=== PATIENT | female | born 1995 | race African-American/Black ===

== ENCOUNTER 2019-03-16 18:18 | Emergency (ER) | payer BC ==
--- NOTE | 2019-03-16 18:42 | ER Document Report ---
ED Medical Screen (RME) - General Chief Complaint: Flu Symptoms Stated Complaint: FEVER Time Seen by Provider: 03/16/19 18:26 TRAVEL OUTSIDE OF THE [place] IN LAST 30 DAYS: No - HPI Notes: 03/16/19 18:40 Patient is a 24-year-old female with no significant past medical history who presents complaining of being "sick" for the past week. Patient states that it started with fever/body ache and sore throat which progressed to nausea and vomiting. Patient states that she was evaluated twice in urgent care this past week with a last day being Monday with 2 strep tests that were negative. Patient states that she was placed on erythromycin antibiotic since Monday and she has not noticed any improvement. Patient states that she has a decreased appetite. She is still urinating. Patient states that she has noticed a small painful bump in her groin and noticed some vaginal discharge this week as well. She does continue to have a sore throat with exudates. She also has nasal congestion and discharge and an occasional dry cough. Denies FAITH, neck pain, CP, SOB, Abd pain, dysuria, back pain, or rash. I have treated and performed a rapid initial assessment of this patient. A comprehensive ED assessment and evaluation of the patient, analysis of test results and completion of medical decision making process will be conducted by additional ED providers. PHYSICAL EXAMINATION: GENERAL: Well-appearing, well-nourished and in no acute distress. A&Ox4. Answers questions appropriately. Moves comfortably w/o notable distress HEAD: Atraumatic, normocephalic. EYES: Pupils equal round and reactive to light, extraocular movements intact, sclera anicteric, conjunctiva are normal. ENT: Nares patent and with clear discharge. oropharynx mild erythema without exudates. 2+ tonsilar hypertrophy with erythema and b/l exudates. No palatine shift. Uvula midline. No tongue protrusion. No drooling, hoarseness, or airway compromise. Moist mucous membranes. No sinus tenderness. NECK: Normal range of motion, supple without lymphadenopathy. No rigidity/meningismus. LUNGS: Breath sounds clear to auscultation bilaterally and equal. No wheezes rales or rhonchi. No retractions HEART: Regular rate and rhythm without murmurs, rubs, gallops. ABDOMEN: Soft, nontender, nondistended abdomen. No guarding, no rebound. Normal bowel sounds present. No CVA tenderness bilaterally. No h epatosplenomegaly. NEUROLOGICAL: Normal speech, normal gait. PSYCH: Normal mood, normal affect. SKIN: Warm, Dry, normal turgor, no rashes or lesions noted. - Related Data Allergies/Adverse Reactions: No Known Allergies Allergy (Verified 03/16/19 18:20) Physical Exam - Vital signs Vitals: Temp Pulse Resp BP Pulse Ox 99.7 F 124 H 20 128/80 H 100 03/16/19 18:23 03/16/19 18:23 03/16/19 18:23 03/16/19 18:23 03/16/19 18:23 Course - Vital Signs Vital signs: Temp Pulse Resp BP Pulse Ox 99.7 F 124 H 20 128/80 H 100 03/16/19 18:23 03/16/19 18:23 03/16/19 18:23 03/16/19 18:23 03/16/19 18:23
[2019-03-16] MEDS ORDERED: DEXAMETHASONE SOD PHOS INJ 10 MG/1 ML VIAL IV ONE (18:43)
[2019-03-16] MEDS ORDERED: ONDANSETRON HCL INJ/PF 4 MG/2 ML SDV IV ONE (18:43)
--- NOTE | 2019-03-16 19:11 | RADIOLOGY REPORT (SQ) ---
EXAM DESCRIPTION: CHEST 2 VIEWS COMPLETED DATE/TIME: 03/16/2019 7:03 pm REASON FOR STUDY: cough COMPARISON: None. EXAM PARAMETERS: NUMBER OF VIEWS: two views TECHNIQUE: Digital Frontal and Lateral radiographic views of the chest acquired. RADIATION DOSE: NA LIMITATIONS: none FINDINGS: LUNGS AND PLEURA: No opacities, masses or pneumothorax. No pleural effusion. MEDIASTINUM AND HILAR STRUCTURES: No masses or contour abnormalities. HEART AND VASCULAR STRUCTURES: Heart normal size. No evidence for failure. BONES: No acute findings. HARDWARE: None in the chest. OTHER: No other significant finding. IMPRESSION: No acute abnormality of the lungs. No focal airspace opacity. TECHNICAL DOCUMENTATION: JOB ID: [id number] [employer]- All Rights Reserved Reading location - IP/workstation name: [email or web address]
[2019-03-16] MEDS: NORMAL SALINE 1000 ML 1,000 ML IV PRN ×2 (19:24→22:52)
[2019-03-16 19:37] LABS: ABSOLUTE LYMPHOCYTES (AUTO) 1.3 10^3/uL (0.5-4.7); ABSOLUTE NEUT (AUTO) 3.1 10^3/uL (1.7-8.2); BASOPHILS % (AUTO) 0.2 % (0-2); HEMOGLOBIN 13.1 g/dL (12.0-15.5); LYMPHOCYTES % (AUTO) 23.8 % (13-45); MEAN CORPUSCULAR HEMOGLOBIN 30.3 pg (27.0-33.4); MEAN CORPUSCULAR HGB CONC 33.7 g/dL (32.0-36.0); MEAN CORPUSCULAR VOLUME 90 fl (80-97); MONOCYTES % (AUTO) 17.8 % (3-13); PLATELET COUNT 174 10^3/uL (150-450); RED BLOOD COUNT 4.34 10^6/uL (3.72-5.28); RED CELL DISTRIBUTION WIDTH 12.5 % (11.5-14.0); SEGMENTED NEUTROPHILS % (AUTO) 58.2 % (42-78); TOTAL CELLS COUNTED % (AUTO) 100 %; WHITE BLOOD COUNT 5.4 10^3/uL (4.0-10.5)
[2019-03-16 19:56] LABS: ALANINE AMINOTRANSFERASE 25 U/L (9-52); ALBUMIN 4.4 g/dL (3.5-5.0); ALKALINE PHOSPHATASE 56 U/L (38-126); ANION GAP 9 (5-19); ASPARTATE AMINO TRANSFERASE 26 U/L (14-36); BILIRUBIN,DIRECT 0.2 mg/dL (0.0-0.4); BILIRUBIN,TOTAL 0.3 mg/dL (0.2-1.3); BLOOD UREA NITROGEN 9 mg/dL (7-20); CALCIUM 9.5 mg/dL (8.4-10.2); CARBON DIOXIDE 26 mmol/L (22-30); CHLORIDE 103 mmol/L (98-107); GLUCOSE 97 mg/dL (75-110); LIPASE 67.8 U/L (23-300); POTASSIUM 4.1 mmol/L (3.6-5.0); SODIUM 137.9 mmol/L (137-145); TOTAL PROTEIN 7.9 g/dL (6.3-8.2)
[2019-03-16 20:41] LABS: APPEARANCE,URINE CLOUDY; BILIRUBIN,URINE NEGATIVE (NEGATIVE); COLOR,URINE DARK YELLOW; GLUCOSE, URINE NEGATIVE (NEGATIVE); KETONES,URINE 20 mg/dL (NEGATIVE); LEUKOCYTE ESTERASE,URINE MODERATE (NEGATIVE); NITRITE,URINE NEGATIVE (NEGATIVE); PROTEIN,URINE 100 mg/dL (NEGATIVE); URINE SPECIFIC GRAVITY 1.025; UROBILINOGEN,URINE NEGATIVE mg/dL (<2.0)
[2019-03-16 21:16] LABS: CHLAM PCR NOT DETECTED (NOT DETECT)
--- NOTE | 2019-03-16 21:30 | ER Document Report ---
ED Flu Like - General Chief Complaint: Flu Symptoms Stated Complaint: FEVER Time Seen by Provider: 03/16/19 18:26 Primary Care Provider: [facility] [Provider Group] - Follow up as needed WOODROW JENKINS MD [EMERITUS] - Follow up as needed MARY JANE SYED MD [ACTIVE STAFF] - Follow up as needed EARLE SYED NP [NURSE PRACTITIONER] - Follow up as needed Notes: Patient is a 24-year-old female who presents to the emergency department for body aches and fever. Patient states that last Monday she woke up with body aches and felt like she had a temperature. Patient states the fever started out low-grade and is gotten as high as 101.7. Patient was seen at urgent care twice this week with 2 day hx. strep test. Patient states that the provider who saw her the second time treated her with erythromycin and as she had strep as her symptoms and throat examination appeared to exhibit strep-like symptoms. Patient states she has been taking the erythromycin without relief. Patient states she has been alternating Tylenol. Patient states she also noticed a lump to the right groin on Monday. Patient states since Monday it has improved but is extremely tender to touch and movable. Patient denies drainage from the site. Patient states that she is sexually active. Patient denies vaginal bleeding. Patient states she does have multiple cuts on the outside of the vagina due to what she thinks is "rough sex." Patient states prior to starting her period a few days ago she did have some vaginal discharge in which she would call off white in color. Patient states it was a little more than her normal. Patient states she does have a history of BV and that she was thinking that it could be this. TRAVEL OUTSIDE OF THE [place] IN LAST 30 DAYS: No - Related Data Allergies/Adverse Reactions: No Known Allergies Allergy (Verified 03/16/19 18:20) Past Medical History - Social History Smoking Status: Never Smoker Frequency of alcohol use: None Drug Abuse: None Lives with: Spouse/Significant other Family History: None Patient has suicidal ideation: No Patient has homicidal ideation: No Renal/ Medical History: Denies: Hx Peritoneal Dialysis Physical Exam - Vital signs Vitals: Temp Pulse Resp BP Pulse Ox 99.7 F 124 H 20 128/80 H 100 03/16/19 18:23 03/16/19 18:23 03/16/19 18:23 03/16/19 18:23 03/16/19 18:23 Interpretation: Tachycardic - Notes Notes: GENERAL: Well-appearing, well-nourished and in no acute distress. HEAD: Atraumatic, normocephalic. EYES: Pupils equal round and reactive to light, extraocular movements intact, sclera anicteric, conjunctiva are normal. ENT: TMs normal, nares patent, oropharynx with white exudates and mild tonsillar swelling. Moist mucous membranes. No nuchal rigidity. NECK: Normal range of motion, supple without lymphadenopathy or JVD. LUNGS: Breath sounds clear to auscultation bilaterally and equal. No wheezes rales or rhonchi. HEART: Regular rate and rhythm without murmurs, rubs or gallops. ABDOMEN: Soft, nontender, normoactive bowel sounds. No guarding, no rebound. No masses appreciated. BACK: No cervical, thoracic, lumbar midline tenderness. No saddle anesthesia, normal distal neurovascular exam. GENITOURINARY: Deferred. EXTREMITIES: Normal range of motion, no pitting or edema. No clubbing or cyanosis. NEUROLOGICAL: Cranial nerves II through XII grossly intact. Normal speech, normal gait. PSYCH: Normal mood, normal affect. SKIN: Warm, Dry, normal turgor, no rashes or lesions noted. Course - Re-evaluation Re-evalutation: 03/16/19 22:08 Patient's vaginal exam was consistent with herpes lesions x 2. I did obtain a viral culture that was sent to the lab. I did obtain a wet prep to rule out bacterial vaginosis and yeast. Patient's significant other is at the bedside. Patient states that they have been having rougher sex all week with 5 days in a row. Patient states she thought the lesions were breaks in the skin. Patient at the bedside says he is not currently having any symptoms. I will order a RPR to rule out syphilis. 03/17/19 00:06 Patient received second liter of IV hydration. Patient is receiving a gram of Rocephin prior to discharge due to her significant urinary tract infection. A urine culture has been ordered. I did inform the patient that viral culture for herpes will not return immediately and she will be called with the results. I did inform the patient to with hold from having sexual intercourse until her symptoms have improved and she has a definitive diagnosis. Patient's throat examination did reveal exudate to the back of the throat. Patient has been taking erythromycin as prescribed for possible strep. I did inform the patient to complete this dose. Although the mono test was negative I did inform the patient that over the next 6 to 8 weeks she could potentially have viral type symptoms due to mono as a mono test is not always accurate. I did inform the patient to seek medical till attention for significantly high fevers, inability to urinate, throat swelling, severe abdominal pain, passing out or any other concerning signs or symptoms. Patient verbalized understanding. - Vital Signs Vital signs: Temp Pulse Resp BP Pulse Ox 98.2 F 86 16 120/72 100 03/17/19 02:15 03/17/19 02:15 03/17/19 02:15 03/17/19 02:15 03/17/19 02:15 - Laboratory Result Diagrams: 03/16/19 19:06 03/16/19 19:06 Laboratory results interpreted by me: 03/16/19 03/16/19 19:06 19:06 Monocytes % 17.8 H Urine Protein 100 H Urine Ketones 20 H Urine Blood LARGE H Ur Leukocyte Esterase MODERATE H 03/17/19 02:05 Laboratory 03/16/19 03/16/19 03/16/19 19:06 19:06 19:06 WBC 5.4 RBC 4.34 Hgb 13.1 Hct 39.0 MCV 90 MCH 30.3 MCHC 33.7 RDW 12.5 Plt Count 174 Seg Neutrophils % 58.2 Lymphocytes % 23.8 Monocytes % 17.8 H Eosinophils % 0.0 Basophils % 0.2 Absolute Neutrophils 3.1 Absolute Lymphocytes 1.3 Absolute Monocytes 1.0 Absolute Eosinophils 0.0 Absolute Basophils 0.0 Sodium 137.9 Potassium 4.1 Chloride 103 Carbon Dioxide 26 Anion Gap 9 BUN 9 Creatinine 0.67 Est GFR ( Amer) > 60 Est GFR (Non-Af Amer) > 60 Glucose 97 Calcium 9.5 Total Bilirubin 0.3 Direct Bilirubin 0.2 Neonat Total Bilirubin Not Reportable Neonat Direct Bilirubin Not Reportable Neonat Indirect Bili Not Reportable AST 26 ALT 25 Alkaline Phosphatase 56 Total Protein 7.9 Albumin 4.4 Lipase 67.8 Urine Color Urine Appearance Urine pH Ur Specific [place] Urine Protein Urine Glucose (UA) Urine Ketones Urine Blood Urine Nitrite Urine Bilirubin Urine Urobilinogen Ur Leukocyte Esterase Urine WBC (Auto) Urine RBC (Auto) Urine WBC Clumps Squamous Epi Cells Auto Urine Mucus (Auto) Urine Ascorbic Acid Urine HCG, Qual Bacteria (Wet Prep) Trichomonas (Wet Prep) Vaginal WBC Vaginal RBC Vaginal Yeast Chlamydia DNA (PCR) Monotest NEGATIVE N.gonorrhoeae DNA (PCR) Group A Strep Rapid 03/16/19 03/16/19 03/16/19 19:06 19:06 19:06 WBC RBC Hgb Hct MCV MCH MCHC RDW Plt Count Seg Neutrophils % Lymphocytes % Monocytes % Eosinophils % Basophils % Absolute Neutrophils Absolute Lymphocytes Absolute Monocytes Absolute Eosinophils Absolute Basophils Sodium Potassium Chloride Carbon Dioxide Anion Gap BUN Creatinine Est GFR ( Amer) Est GFR (Non-Af Amer) Glucose Calcium Total Bilirubin Direct Bilirubin Neonat Total Bilirubin Neonat Direct Bilirubin Neonat Indirect Bili AST ALT Alkaline Phosphatase Total Protein Albumin Lipase Urine Color DARK YELLOW Urine Appearance CLOUDY Urine pH 5.0 Ur Specific [place] 1.025 Urine Protein 100 H Urine Glucose (UA) NEGATIVE Urine Ketones 20 H Urine Blood LARGE H Urine Nitrite NEGATIVE Urine Bilirubin NEGATIVE Urine Urobilinogen NEGATIVE Ur Leukocyte Esterase MODERATE H Urine WBC (Auto) >182 Urine RBC (Auto) >182 Urine WBC Clumps MANY Squamous Epi Cells Auto 5 Urine Mucus (Auto) MOD Urine Ascorbic Acid NEGATIVE Urine HCG, Qual NEGATIVE Bacteria (Wet Prep) Trichomonas (Wet Prep) Vaginal WBC Vaginal RBC Vaginal Yeast Chlamydia DNA (PCR) NOT DETECTED Monotest N.gonorrhoeae DNA (PCR) NOT DETECTED Group A Strep Rapid 03/16/19 03/16/19 19:58 21:57 WBC RBC Hgb Hct MCV MCH MCHC RDW Plt Count Seg Neutrophils % Lymphocytes % Monocytes % Eosinophils % Basophils % Absolute Neutrophils Absolute Lymphocytes Absolute Monocytes Absolute Eosinophils Absolute Basophils Sodium Potassium Chloride Carbon Dioxide Anion Gap BUN Creatinine Est GFR ( Amer) Est GFR (Non-Af Amer) Glucose Calcium Total Bilirubin Direct Bilirubin Neonat Total Bilirubin Neonat Direct Bilirubin Neonat Indirect Bili AST ALT Alkaline Phosphatase Total Protein Albumin Lipase Urine Color Urine Appearance Urine pH Ur Specific [place] Urine Protein Urine Glucose (UA) Urine Ketones Urine Blood Urine Nitrite Urine Bilirubin Urine Urobilinogen Ur Leukocyte Esterase Urine WBC (Auto) Urine RBC (Auto) Urine WBC Clumps Squamous Epi Cells Auto Urine Mucus (Auto) Urine Ascorbic Acid Urine HCG, Qual Bacteria (Wet Prep) 3+ BACTERIA SEEN Trichomonas (Wet Prep) NO TRICHOMONAS SEEN Vaginal WBC 1+ WBCS SEEN Vaginal RBC 2+ RBCS SEEN Vaginal Yeast NO YEAST SEEN Chlamydia DNA (PCR) Monotest N.gonorrhoeae DNA (PCR) Group A Strep Rapid NEGATIVE Patient has a negative mono, negative strep, negative gonorrhea and chlamydia, no leukocytosis or abnormality in electrolytes. RPR and herpes - Diagnostic Test Radiology reviewed: Reports reviewed Procedures - Pelvic Exam Pelvic exam Time completed: 21:45 Cultures obtained: Yes Wet prep obtained: Yes Herpes culture obtained: Yes Foreign body removed: No Notes: 03/16/19 22:04 Patient is on her menstrual cycle. The external genitalia did show a lesion that was consistent with herpes on the right labia majora and there was another lesion to the inner vagina on the left side of the labia minora. Initial insertion of the speculum had to be paused as the patient experienced significant pain. I did offer the patient to self swab but patient stated she would like to try for me to insert the speculum again to get a good specimen. Upon the second insertion the patient did tolerate fairly well. Patient did have tenderness with the movement of the speculum. I was able to easily visualize the cervix. There was no abnormal lesions. There was blood noted in the vaginal vault and on the cervix which was consistent with a menstrual cycle. There was no blood clots. Discharge - Discharge Clinical Impression: Bacterial vaginosis, Vaginal sore, Low grade fever, Generalized body aches Urinary tract infection Qualifiers: Urinary tract infection type: site unspecified Hematuria presence: with hematuria Qualified Code(s): N39.0 - Urinary tract infection, site not specified Pharyngitis Qualifiers: Pharyngitis/tonsillitis etiology: unspecified etiology Qualified Code(s): J02.9 - Acute pharyngitis, unspecified Condition: Stable Disposition: HOME, SELF-CARE Additional Instructions: Today you were seen in the emergency department for fever, sore throat and generalized body aches. Your lab work was unremarkable although you did have a significant urinary tract infection. We will give you Keflex which is an antibiotic that you will take and reports completed dose to treat this. I have added on a urine culture and you will be called if you require an additional or different antibiotic. Your pelvic examination was concerning for herpes. I did obtain a culture and this was sent to the lab. You will be contacted if this is positive. You were also tested for syphilis. You will also be contacted if this is positive. Your gonorrhea and Chlamydia were negative as well as the trichomonas. Your vaginal specimen was positive for bacterial vaginosis. I will prescribe you Flagyl for this. Do not drink alcohol while on Flagyl. Please abstain from sexual activity until your symptoms have cleared and you have been rechecked by physician. Please return to the emergency department for worsening signs or symptoms to include high fever, severe abdominal pain, inability to urinate or decreased urination, uncontrollable vomiting, severe neck pain or severe headache or any other concerning signs or symptoms. Herpes Simplex You have been diagnosed as having a herpes virus infection. The herpes ("cold sore") virus usually infects the areas around the mouth. However, it can cause infection on any skin surface. It's particularly dangerous if infection occurs in the eye. On the initial infection, herpes blisters erupt over a large area. There is usually fever and aching. This infection takes about 14 days to resolve. After the initial infection, herpes sores can erupt on small areas (usually the lips), then heal in about a week. Sunburn, fever, local irritation, or even emotions can provoke a "fever blister" attack of herpes. Initial herpes infections can be treated with medication if severe. Subsequent attacks are usually given only local care to reduce symptoms; however, the physician may decide to prescribe anti-viral medication if your case warrants it. Call the doctor if you are worsening in any way. Urinary Tract Infection Your evaluation indicates that you have a urinary tract infection. This is due to germs growing in the bladder. This is a common problem. This infection usually responds quickly to antibiotics. Your antibiotic s hould be taken exactly as prescribed. Drink plenty of fluids -- three to four quarts a day. Occasionally, a bladder anesthetic will be prescribed to help stop the feeling of urgency until the antibiotic has a chance to clear the infection. This may cause your urine to be dark orange. Certain urine infections require a culture. If the doctor obtained a culture, the results will be back in two days. You should call to see if a change in treatment is needed. A repeat urinalysis after you finish treatment is often recommended. The physician will let you know if further testing is required. Call the doctor if you develop fever, chills, flank pain, inability to urinate, or blood in the urine. Vaginosis, Bacterial Your exam shows you have bacterial vaginosis. This condition is due to an overgrowth of bacteria in the vagina. Symptoms may include vaginal itching or pain, a smelly discharge, and sometimes burning with urination. Normally this is not transmitted by sexual contact. Vaginosis can be treated with oral or topical antibiotics. Metronidazole (Flagyl) pills are usually effective. Topical vaginal creams include Cleocin and Metro-Gel. You should avoid sexual contact until your symptoms are all better. Call the doctor if you develop pelvic pain, fever, or problems with urination, or if you don't improve as expected. Prescriptions: Acyclovir [Acyclovir 400 mg Tablet] 400 mg PO TID 7 Days #21 tablet Cephalexin Monohydrate [Keflex 500 mg Capsule] 500 mg PO QID 7 Days #28 capsule Metronidazole [Flagyl 500 mg Tablet] 500 mg PO BID 7 Days #14 tablet Referrals: [facility] [Provider Group] - Follow up as needed WOODROW JENKINS MD [EMERITUS] - Follow up as needed MARY JANE SYED MD [ACTIVE STAFF] - Follow up as needed EARLE SYED NP [NURSE PRACTITIONER] - Follow up as needed
[2019-03-16] MEDS ORDERED: CEFTRIAXONE 1 GM/D5W RTU 1 GM/50 ML RTUPB IV ONE (22:14)
[2019-03-16 22:15] LABS: BACTERIA (WET MOUNT) 3+ BACTERIA SEEN; RBCS (WET MOUNT) 2+ RBCS SEEN; T.VAGINALIS (WET MOUNT) NO TRICHOMONAS SEEN; WBCS (WET MOUNT) 1+ WBCS SEEN; YEAST (WET MOUNT) NO YEAST SEEN
[2019-03-16] MEDS ORDERED: ACETAMINOPHEN 325 MG TABLET PO ONE (22:29)
[2019-03-17] MEDS ORDERED: ACYCLOVIR 200 MG CAPSULE PO ONE (00:19)
[2019-03-17] MEDS ORDERED: METRONIDAZOLE 500 MG TABLET PO ONE (00:19)
[2019-03-17 02:16] VITALS: BP 120/72
== END 2019-03-17 02:16 | disposition home or self-care (01) ==
LOC: ER 18:18
DX: J02.9 Acute pharyngitis, unspecified (principal); N39.0 Urinary tract infection, site not specified; N76.0 Acute vaginitis; B96.89 Other specified bacterial agents as the cause of diseases classified elsewhere; L98.8 Other specified disorders of the skin and subcutaneous tissue; M79.10 Myalgia, unspecified site; R50.9 Fever, unspecified
CPT/HCPCS: 99283; 96361; 96375; 96365; 36415; 87070; 87086; 87210; 87880; 83690; 85025; 81025; 87077; 86308; 86592; 80053; 81001; 87250; 87491; 87591; 71046; J2405; J7030; J0696; J1100

== ENCOUNTER 2019-09-07 19:31 | Emergency (ER) | payer BC ==
[2019-09-07] MEDS ORDERED: ACETAMINOPHEN 325 MG TABLET PO ONE (20:06)
--- NOTE | 2019-09-07 20:06 | ER Document Report ---
ED Medical Screen (RME) - General Chief Complaint: Headache Stated Complaint: FALL-HEAD AND NECK PAIN Time Seen by Provider: 09/07/19 19:53 TRAVEL OUTSIDE OF THE [place] IN LAST 30 DAYS: No - HPI Notes: 09/07/19 20:03 Patient is a 24-year-old female with a history of chronic neck and back issues who presents status post witnessed injury complaining of headache and severe neck pain. Patient was on a skateboard when she tried to avoid colliding with a car and fell off hitting her head off of the cement/pavement. She did not lose consciousness and her significant other was with her immediately thereafter. Patient states that she has not been able to turn her head to the left or right because of the pain. She does have noise sensitivity. Denies any fever, changes in vision/speech/mentation/hearing, URI, sore throat, chest pain, palpitations, syncope, cough, shortness of breath, wheeze, dyspnea, abdominal pain, nausea/vomiting/diarrhea, urinary retention, dysuria, hematuria, loss of control of bowel or bladder, numbness/tingling, saddle anesthesia, muscle paralysis/weakness, or rash. I have treated and performed a rapid initial assessment of this patient. A comprehensive ED assessment and evaluation of the patient, analysis of test results and completion of medical decision making process will be conducted by additional ED providers. PHYSICAL EXAMINATION: GENERAL: Well-appearing, well-nourished and in no acute distress. A&Ox4. Answers questions appropriately. Head: No evidence of bleeding or step-offs. No obvious hill sign. There is some mild tenderness to the superior occiput area. Mild swelling to this area. Ears: No hemotympanum Eyes: No raccoon eyes Neck: Limited range of motion with noted tenderness to the bilateral neck and midline. Neuro: Cranial nerves grossly intact. GCS 15. - Related Data Allergies/Adverse Reactions: No Known Allergies Allergy (Verified 09/07/19 19:46) Past Medical History - Social History Chew tobacco use (# tins/day): No Frequency of alcohol use: None Drug Abuse: None Renal/ Medical History: Denies: Hx Peritoneal Dialysis Physical Exam - Vital signs Vitals: Temp Pulse Resp BP Pulse Ox 97.6 F 79 18 117/70 100 09/07/19 19:43 09/07/19 19:43 09/07/19 19:43 09/07/19 19:43 09/07/19 19:43 Course - Vital Signs Vital signs: Temp Pulse Resp BP Pulse Ox 97.6 F 79 18 117/70 100 09/07/19 19:43 09/07/19 19:43 09/07/19 19:43 09/07/19 19:43 09/07/19 19:43
--- NOTE | 2019-09-07 20:48 | RADIOLOGY REPORT (SQ) ---
PROCEDURE: CT cervical spine without IV contrast Completed date and time: 09/07/2019 8:18 PM CLINICAL HISTORY: 24 years Female pain s/p head/neck injury on skateboard vs concrete COMPARISON: None. TECHNIQUE: Contiguous axial images obtained through the cervical spine without IV contrast. Coronal and sagittal reformatted images obtained. This exam was performed according to our department optimization program which includes automated exposure control, adjustment of the mA and/or kv according to patient size and/or use of iterative reconstruction technique. FINDINGS: Vertebral body alignment is unremarkable. No acute fractures. No significant central canal stenosis. Prevertebral soft tissues appear within normal limits. IMPRESSION: No acute cervical spinal fracture is identified.
--- NOTE | 2019-09-07 20:48 | RADIOLOGY REPORT (SQ) ---
EXAM DESCRIPTION: [facility]: CT HEAD WITHOUT IV CONTRAST CLINICAL HISTORY: 24 years Female; pain s/p head/neck injury on skateboard vs concret TECHNIQUE: Noncontrast CT head. All CT scans at this facility use dose modulation, iterative reconstruction, and/or weight based dosing when appropriate to reduce radiation dose to as low as reasonably achievable. COMPARISON: None. FINDINGS: Chi matter, white matter, ventricles, and cisterns are within normal limits. No acute hemorrhage or mass effect. Visualized portions of paranasal sinuses and mastoids are clear. No acute calvarial fractures. No significant scalp hematoma. IMPRESSION: 1. No acute intracranial findings.
--- NOTE | 2019-09-07 20:50 | ER Document Report ---
ED Fall - General Chief Complaint: Closed Head Injury Stated Complaint: FALL-HEAD AND NECK PAIN Time Seen by Provider: 09/07/19 19:53 Primary Care Provider: [facility] [Provider Group] - Follow up as needed Mode of Arrival: Ambulatory Information source: Patient Notes: 24-year-old female presented to ED for complaint of pain to her back of her head neck and lower back. She states she was skateboarding she tried to avoid colliding with a car fell off hitting her head on the cement pavement. She states that she did not lose consciousness and there is no new neurological deficits. She states that she does have a history of chronic back problems with a surgery on L4-L5, L5-S1 in 2015 for bulging and herniated disc. Patient states it is very painful to turn her head to the left and right and she is wearing a cervical collar when I examined her. She does have pain to the bony prominences of the cervical spine and lumbar spine TRAVEL OUTSIDE OF THE [place] IN LAST 30 DAYS: No - HPI Occurred: Just prior to arrival Where: Outdoors, Public place Context: Fell from standing - Fell off skateboard Associated symptoms: None Location of injury/pain: Back, Head, Neck Quality of pain: Sharp Severity: Moderate Pain Level: 4 - Related data Allergies/Adverse Reactions: No Known Allergies Allergy (Verified 09/07/19 19:46) Past Medical History - General Information source: Patient - Social History Smoking Status: Never Smoker Chew tobacco use (# tins/day): No Frequency of alcohol use: Occasional Drug Abuse: None Lives with: Spouse/Significant other Family History: None Patient has suicidal ideation: No Patient has homicidal ideation: No - Past Medical History Cardiac Medical History: Reports: None Pulmonary Medical History: Reports: None EENT Medical History: Reports: None Neurological Medical History: Reports: None Endocrine Medical History: Reports: None Renal/ Medical History: Reports: None Malignancy Medical History: Reports: None GI Medical History: Reports: None Musculoskeletal Medical History: Reports Hx Musculoskeletal Deformity, Reports Hx Musculoskeletal Trauma Skin Medical History: Reports None Psychiatric Medical History: Reports: None Traumatic Medical History: Reports: None Infectious Medical History: Reports: None Past Surgical History: Reports: Hx Orthopedic Surgery - lumbar disc - Immunizations Immunizations up to date: Yes Review of Systems - Review of Systems Constitutional: No symptoms reported EENT: No symptoms reported Cardiovascular: No symptoms reported Respiratory: No symptoms reported Gastrointestinal: No symptoms reported Genitourinary: No symptoms reported Female Genitourinary: No symptoms reported Musculoskeletal: No symptoms reported, Back pain, Neck pain Skin: No symptoms reported Hematologic/Lymphatic: No symptoms reported Neurological/Psychological: Headaches -: Yes All other systems reviewed and negative Physical Exam - Vital signs Vitals: Temp Pulse Resp BP Pulse Ox 97.6 F 79 18 117/70 100 09/07/19 19:43 09/07/19 19:43 09/07/19 19:43 09/07/19 19:43 09/07/19 19:43 Interpretation: Normal - General General appearance: Appears well, Alert - HEENT Head: Tenderness Eyes: Normal Pupils: PERRL Ears: Normal External canal: Normal Tympanic membrane: Normal Sinus: Normal Mouth/Lips: Normal Mucous membranes: Normal Pharynx: Normal Neck: Normal - Respiratory Respiratory status: No respiratory distress Chest status: Nontender Breath sounds: Normal Chest palpation: Normal - Cardiovascular Rhythm: Regular Heart sounds: Normal auscultation Murmur: No - Abdominal Inspection: Normal Distension: No distension Bowel sounds: Normal Tenderness: Nontender Organomegaly: No organomegaly - Back Back: Tender, Vertebra tenderness, Scars Notes: Patient states she always has numbness to the right leg and hip since her surgery in 2014 but no change in that. She denies any loss control of bowel bladder any saddle anesthesia or any change in her neurological status. She does have pain to the neck and back of the head. - Extremities General upper extremity: Normal inspection, Nontender, Normal color, Normal ROM, Normal temperature General lower extremity: Normal inspection, Nontender, Normal color, Normal ROM, Normal temperature, Normal weight bearing. No: Eleonora's sign - Neurological Neuro grossly intact: Yes Cognition: Normal Orientation: AAOx4 Palak Coma Scale Eye Opening: Spontaneous Telford Coma Scale Verbal: Oriented Telford Coma Scale Motor: Obeys Commands Telford Coma Scale Total: 15 Speech: Normal Cranial nerves: Normal Cerebellar coordination: Normal Motor strength normal: LUE, RUE, LLE, RLE Additional motor exam normals: Equal category consultant Babinski reflex: Normal (flexor plantar) Sensory: Normal Biceps - Reflex grade: 2 = Normal Triceps - Reflex grade: 2 = Normal Brachioradialis - Reflex grade: 2 = Normal Knee - Reflex grade: 2 = Normal Ankle - Reflex grade: 2 = Normal - Psychological Associated symptoms: Normal affect, Normal mood - Skin Skin Temperature: Warm Skin Moisture: Dry Skin Color: Normal Course - Vital Signs Vital signs: Temp Pulse Resp BP Pulse Ox 97.8 F 68 16 106/67 100 09/07/19 21:47 09/07/19 21:47 09/07/19 21:47 09/07/19 21:47 09/07/19 21:47 - Diagnostic Test Radiology reviewed: Image reviewed, Reports reviewed Discharge - Discharge Clinical Impression: fall off skateboard Head injury Qualifiers: Encounter type: initial encounter Qualified Code(s): S09.90XA - Unspecified injury of head, initial encounter Cervical strain, acute Qualifiers: Encounter type: initial encounter Qualified Code(s): S16.1XXA - Strain of muscle, fascia and tendon at neck level, initial encounter Low back pain Qualifiers: Chronicity: acute Back pain laterality: midline Sciatica presence: with sciatica Sciatica laterality: sciatica of right side Qualified Code(s): M54.41 - Lumbago with sciatica, right side Condition: Stable Disposition: HOME, SELF-CARE Additional Instructions: HEAD INJURY PRECAUTIONS: At this point, there is no evidence that your head injury is serious. Observation is necessary, however. Take only clear liquids for the first few hours, unless told otherwise by the doctor. If no pain medication was prescribed, you may take acetaminophen according to the directions on the bottle. Do not take any medication that may alter your level of alertness (unless you've discussed it with the doctor first). Limit activity for the first 24 hours. Bed rest is best. During the first 24 hours, check to see approximately every two to three hours that the patient is easily arousable, responds normally, and can perform common tasks such as walking without difficulty. Contact your doctor or go to the hospital if any of the following things occur: Persistent vomiting, difficulty in arousing the patient, worsening or continued headache, or failure to improve as expected. Head injuries can cause symptoms that persist for a few days or even a few weeks. Concussion You have suffered a concussion -- a temporary loss of certain brain functions due to a mild brain injury. The recovery is usually rapid and complete. The temporary problems occurring with a concussion can include loss of consciousness, dizziness, nausea, vomiting, and confusion. Repeat concussions can cause brain damage. In the future, avoid activities that will cause a blow to your head. Wear a helmet for sports such as snowboarding, biking, or skating. It's important that someone be with you for the first 24 hours. During this time, do not exercise or drive a vehicle. Do not take any pain medication stronger than acetaminophen unless prescribed by the physician. Any significant changes should be reported immediately to the physician. Signs of a problem may include: (1) Mental confusion (2) Incoordination or staggering (3) Repeated or forceful vomiting (4) Clear or bloody drainage from ear, mouth, or nose (5) Severe headache, not relieved by acetaminophen or prescribed pain medication (6) Failure to improve in 24 hours NECK INJURY (CERVICAL STRAIN): You have a neck strain. This is an injury to the muscles and ligaments in the neck. There is no evidence of a fracture of the neck bones. Also, no injury to the spinal cord or nerve roots was detected. Usually, stiffness and pain INCREASE for the first 24-48 hours after the injury. The pain will gradually resolve and the neck will become more mobile. Most patients are back at work or school within a few days. Typically, complete healing takes about two or three weeks. The usual initial treatment is rest and cold packs. A neck collar may be placed to keep the muscles of the neck at rest. Antiinflammatory and muscle relaxing medication are often used to reduce the spasm and irritation. You should call the doctor, or go to the hospital, if you develop numbness or weakness in any extremity, problems with your bladder or bowel, or pain radiating down the arms. MUSCLE STRAIN: You have strained a muscle -- torn the fibers within the muscle. This often occurs with strenuous exertion, or during an injury that suddenly stretches the muscle. The seriousness of a strain varies. Some strains heal within days, others cause problems for months. X-rays cannot show a muscle strain. X-rays are taken only if symptoms suggest that a fracture could be present. The usual treatment of a muscle strain is rest and ice packs. Sometimes, a sling, splint, or crutches may be necessary to rest the muscle. The muscle can be used again once pain subsides. Severe strains require a special exercise and stretching program to prevent permanent stiffness and disability. Your doctor will advise you if this will be necessary. Call the doctor immediately if pain or swelling becomes severe, or if numbness or discoloration develop. CONTUSION: Your injury has resulted in a contusion -- a crushing of the deep tissues. No injury to important structures was detected during the physician's exam. Contusions vary in the amount of pain they cause, and in the length of time required for healing. Typically, the area will become bruised, and will remain painful to touch for two or three weeks. However, most patients are back to working and playing within a few days. After the initial period of rest and cold-packs, your symptoms (together with the doctor's recommendations) will determine how rapidly you can get back to full activity. Usually this means "do what feels okay, but don't do things that hurt." If re-examination was recommended, it's important to follow up as instructed. Call the doctor or return any time if pain increases, if swelling becomes severe, if you develop numbness or weakness in an injured extremity, or if any other alarming symptoms occur. LOW BACK PAIN: Three out of every four people will have an episode of disabling back pain during their lifetime. Most commonly the pain is due to straining of the muscles and ligaments in the low back. Usual treatment includes: (1) Rest on a firm surface. Avoid lying on your stomach. (2) Ice pack the painful area. After a few days, gentle heat may be used intermittently to relax the area, or ice packs can be continued. (3) Medication may be needed -- muscle relaxers and antiinflammatory medicines are commonly used. (4) As the back improves, exercises are prescribed to strengthen the back and abdominal muscles. Your doctor will advise you on the proper care for your back at each stage in your recovery. You may be better in a few days -- or healing may take several weeks. If new symptoms of a "herniated disc" (radiation of pain, numbness, or tingling down the back of the leg or weakness in the leg) occur, you should be re-examined. Further testing may be necessary. USE OF TYLENOL (ACETAMINOPHEN): Acetaminophen may be taken for pain relief or fever control. It's much safer than aspirin, offering a wider range of "safe" dosages. It is safe during . Some brand names are Tylenol, Panadol, Datril, Anacin 3, Tempra, and Liquiprin. Acetaminophen can be repeated every four hours. The following are maximum recommended dosages: WEIGHT Dose Drops Elixir Chewable(80mg) (LBS.) drprs=droppers tsp=teaspoon 6 40 mg 0.4 ml (1/2) 6-11 80 mg 0.8 ml (full) tsp 1 tab 12-16 120 mg 1 1/2 drprs 3/4 tsp 1 1/2 tabs 17-23 160 mg 2 drprs 1 tsp 2 tabs 24-30 240 mg 3 drprs 1 1/2 tsp 3 tabs 30-35 320 mg 2 tsp 4 tabs 36-41 360 mg 2 1/4 tsp 4 1/2 tabs 42-47 400 mg 2 1/2 tsp 5 tabs 48-53 480 mg 3 tsp 6 tabs 54-59 520 mg 3 1/4 tsp 6 1/2 tabs 60-64 560 mg 3 1/2 tsp 7 tabs 65-70 600 mg 3 3/4 tsp 7 1/2 tabs 71-76 640 mg 4 tsp 8 tabs 77-82 720 mg 4 1/2 tsp 9 tabs 83-88 800 mg 5 tsp 10 tabs >89 pounds or adults 650 mg to 900 mg Acetaminophen can be repeated every four hours. Maximum dose not to exceed 4000 mg a day. These maximum recommended dosages are slightly higher than the dosages written on the product container, but these dosages are very safe and below the toxic dosage for acetaminophen. ICE PACKS: Apply ice packs frequently against the painful area. Many different schedules are recommended, such as "20 minutes on, 20 minutes off" or "one hour ice, two hours rest." If you need to work, you may need to go longer between ice treatments. You should plan to have the area ice packed AT LEAST one fourth of the time. The ice should be applied over the wrap, tape, or splint, or over a layer of cloth -- not directly against the skin. Some ice bags have a built-in cloth and can be put directly on the skin. WARM PACKS: After approximately two days, apply gentle heat (such as a heating pad or hot water bottle) for about 20 to 30 minutes about every two hours -- at least four times daily. Warmth and elevation will help you make a more rapid recovery, and will ease the pain considerably. Do not use HOT heat, and never apply heat for longer than 30 minutes. The continuous heat can invisibly damage skin and muscles -- even when no burn is seen on the surface. Damaged muscles can make you MORE sore. MUSCLE RELAXERS: Muscle relaxing medications are usually prescribed for acute muscle spasm or injury to the neck and back. They are often combined with antiinflammatory pain medication for increased relief. You may stop the muscle relaxer when the pain and stiffness have improved. Start the medication again if spasms recur. Muscle relaxers may cause drowsiness, especially with the first dose. Do not operate machinery or drive while under the effects of the medication. Most muscle relaxers last up to 24 hours. Do not combine the medication with alcohol. Anti-Inflammatory Medication You have received a prescription for an antiinflammatory agent. This is an excellent, safe drug for pain control. In addition, it has potent antiinflammatory effects which are beneficial, especially in the treatment of injuries, arthritis, or tendonitis. It's best to take this medicine with food. Persons with ulcer disease or allergy to aspirin should notify their physician of this before taking this drug. Take the medication exactly as prescribed. Don't take additional doses unless instructed to do so by your doctor. If you develop wheezing, shortness of breath, hives, faintness, stomach pain, vomiting, or dark black stools, return for re-evaluation at once. Stretching Exercises for the Back The physician has recommended that you begin stretching exercises for your back. These are often used even while the back is painful. However, you should notify the physician if the activities seem to increase your pain. PELVIC TILT: Lie flat on your back with knees bent. Tighten your stomach and buttock muscles so it flattens your lower back against the floor. Hold 10 seconds. Repeat 10 times, twice daily. KNEE RAISE: Lying on the back with knees bent, raise one knee to your chest, then the other. Hold both knees against the chest 10 seconds, then lower one knee at a time. Repeat 10 times, twice daily. PARTIAL TRUNK RAISE: Lie face down, arms at your sides. Keeping your waist on the floor, use your arms raise your chest up. Support yourself on your elbows for 30 seconds. Repeat twice daily, increasing the time to two minutes as you recover. FOLLOW-UP CARE: If you have been referred to a physician for follow-up care, call the physicians office for an appointment as you were instructed or within the next two days. If you experience worsening or a significant change in your symptoms, notify the physician immediately or return to the Emergency Department at any time for re-evaluation. Prescriptions: Cyclobenzaprine HCl [Flexeril 10 mg Tablet] 10 mg PO TIDP PRN #15 tab PRN Reason: Naproxen 500 mg PO BID #14 tablet Referrals: [facility] [Provider Group] - Follow up as needed
--- NOTE | 2019-09-07 21:22 | RADIOLOGY REPORT (SQ) ---
EXAM DESCRIPTION: XR LUMBAR SPINE ANTEROPOSTERIOR, LATERAL, AND OBLIQUES COMPLETED DATE/TME: 09/07/2019 20:43 CLINICAL HISTORY: 24 years ,Female fall injury COMPARISON: None. TECHNIQUE: Four views FINDINGS: No acute fractures are identified. No evidence of spondylolysis or spondylolisthesis. Narrowing of the L5-S1 disc interspace with minimal retrolisthesis of L5 on S1. Straightening of the normal lordosis. Pedicles appear intact. IMPRESSION: Mild degenerative change at L5-S1 No acute fracture is identified.
[2019-09-07] MEDS ORDERED: NAPROXEN 250 MG TABLET PO ONE (21:41)
[2019-09-07 21:51] VITALS: BP 106/67
== END 2019-09-07 21:52 | disposition home or self-care (01) ==
LOC: ER 19:31
DX: S09.90XA Unspecified injury of head, initial encounter (principal); S16.1XXA Strain of muscle, fascia and tendon at neck level, initial encounter; M54.41 Lumbago with sciatica, right side; R51 Headache; M54.2 Cervicalgia; M54.9 Dorsalgia, unspecified; G89.29 Other chronic pain; V00.131A Fall from skateboard, initial encounter
CPT/HCPCS: 99284; 72110; 70450; 72125; L0120